=== PATIENT | female | born 1985 | race Caucasian/White ===

== ENCOUNTER → 2018-01-01 13:21 | Outpatient (CLI) | payer SELFPAY ==
[2017-12-08 09:56] VITALS: BP 126/71; BMI 26.4
--- NOTE | 2018-01-01 13:40 | US_ITS ---
STUDY: SECOND AND THIRD TRIMESTER OBSTETRICAL ULTRASOUND REASON FOR EXAM: Female, 32 years old. Anatomy. LMP: August 10, 2017. TECHNIQUE: Transabdominal PRIOR ULTRASOUND: None. FINDINGS: There is a single intrauterine fetus. The fetus is in a breech presentation. There is demonstrated cardiac activity with a heart rate of 143 bpm. There is a normal amniotic fluid volume. The largest amniotic fluid pocket measures 6.1 cm. The placenta is anterior in location and is not low lying. There are Grade 0 placental changes. The cervix measures 3.7 cm in length. The adnexal regions are not visualized. BIOMETRY: BPD: 4.8 cm: 20 weeks, 4 days HC: 18.9 cm: 21 weeks, 2 days AC: 15.58 cm: weeks, 6 days FL: 3.52 cm: 21 weeks, 1 days CI: 72 FL/BPD: 73 FL/HC: FL/AC: 23 HC/AC: 121 age by current US: 21 weeks, 0 days. NIDIA by current US: May 14, 2018. Estimated weight: 387 grams, +/- 57 grams, 65 %. Age by LMP: 20 weeks, 4 days. NIDIA by LMP: May 17, 2018. ANATOMY: Gender: Female Cranium: Normal lateral ventricles. Normal choroid plexus. Normal cerebellum. Normal cisterna magna. Normal face, nose and lips. Chest: Normal 4-chamber heart. Abdomen/Pelvis: Normal diaphragm. Normal stomach. Normal abdominal wall. Normal cord insertion. Normal 3 vessel cord. Normal kidneys. Normal bladder. Spine: Normal cervical spine. Normal thoracic spine. Normal lumbar spine. Normal sacrum. Extremities: Normal bilateral upper extremities. Normal bilateral lower extremities. US/OB Anatomy Scan IMPRESSION: 1. I single intrauterine at 21 weeks, 0 days. NIDIA is May 14, 2018. 2. EFW 38 7 g. 3. Adequate amniotic fluid. 4. Anterior grade 0 placenta. 5. Breech presentation. 6. No evidence of anatomic abnormality. Electronically Signed: Fredi Wilder DO at 16:05 EST Tel [phone], Service support ,
== END ==
PROVIDERS: Family Provider Family Medicine; PCP Family Medicine; Visit Provider Nurse Practitioner Women's Health
DX: Z34.90 Encounter for supervision of normal pregnancy, unspecified, unspecified trimester (principal)
CPT/HCPCS: 76805

== ENCOUNTER → 2018-02-23 12:17 | Outpatient (CLI) | payer SELFPAY ==
[2018-02-23 13:47] LABS: Absolute Lymphocyte Count 2.16 X10^3/ul (0.83-4.51); Absolute Neutrophil Count 11.7 X10^3/uL (2.0-7.7); Basophil# 0.03 X10^3/uL; Basophil% 0.2 % (0-1); Eosinophil# 0.19 X10^3/uL; Eosinophils% 1.3 % (0-5); Hematocrit 34.5 % (37-47); Hemoglobin 11.5 g/dl (12.0-15.0); Lymphocyte # 2.16 X10^3/ul (4.0); Lymphocyte % 14.2 % (19-41); Mean Corp Hgb Conc 33.3 g/gl (32-36); Mean Platelet Vol. 12.1 fl (6.2-12.0); Monocyte# 0.84 X10^3/uL; Monocyte% 5.5 % (0-10); Neutrophil # 11.74 X10^3/uL (2.7-7.7); Neutrophil % 77.5 % (47-70); Platelet Count 230 K/mm3 (150-450); RBC Distribution Width CV 12.9 % (11.6-14.6); Red Blood Count 3.71 M/mm3 (4.2-5.4); White Blood Count 15.2 K/mm3 (4.4-11.0)
[2018-02-23 13:54] LABS: POSITIVE COUNT NO; POSITIVE DIFFERENTIAL NO; POSITIVE MORPHOLOGY NO
[2018-02-23 14:03] LABS: Glucose Challenge Gest 1H 50g 139 mg/dL (70-140)
== END ==
PROVIDERS: Family Provider Family Medicine; PCP Family Medicine; Visit Provider Obstetrics & Gynecology
DX: Z34.81 Encounter for supervision of other normal pregnancy, first trimester (principal)
CPT/HCPCS: 36415; 82950; 85025; 86850; 86900

== ENCOUNTER → 2018-04-20 15:15 | Outpatient (CLI) | payer SELFPAY ==
[2018-04-20 16:22] LABS: Group B Strep DNA By PCR Negative (Negative); Internal Control PASS; Probe Check PASS; Specimen Processing Control PASS
== END ==
PROVIDERS: Family Provider Family Medicine; Visit Provider Nurse Practitioner Women's Health
DX: Z34.93 Encounter for supervision of normal pregnancy, unspecified, third trimester (principal); Z3A.36 36 weeks gestation of pregnancy
CPT/HCPCS: 87081; 87653

== ENCOUNTER 2018-05-18 04:08 | Inpatient (IN) | payer SELFPAY ==
[2018-05-18 04:40] VITALS: BMI 32.8
[2018-05-18] MEDS: Lactated Ringers 1,000 ML 50 ML IV (04:40)
--- NOTE | 2018-05-18 04:43 | PCM.HP.OB ---
- Problem List (1) Active labor at term Status: Acute (2) Abnormal glucose tolerance test in Status: Acute Comment: Fasting and 2 hr pp glucose all normal when checked X 4 weeks (3) Rh negative state in antepartum period Status: Acute Comment: rhogam PRN and at 28 weeks (4) Supervision of normal Status: Acute Qualifiers: Comment: PRR NIDIA 05/17/18 gender surprise PC Thuy, [place] Hao History Date of Admission: 05/18/18 Final NIDIA: 05/17/18 Gestational age: 40 Weeks and 1 Days History of this : This is a 33 year-old, G [], P [], at 40 weeks gestational age. Medical History: Medical History (Last Reviewed 05/11/18 @ 13:03 by Kelsi Flores) Rh negative state in antepartum period (Acute) O09.899 rhogam PRN and at 28 weeks History of abnormal cervical Pap smear Z87.898 Allergies No Known Allergies Allergy (Verified 05/18/18 04:39) Smoking Status: Never smoker Alcohol: None Number of Fetus(es): 1 Heart Tracin moderate variability nonreactive category I tracing TOCO Analysis: q2-3 History Past Pregnancies: Past Pregnancies Pregancy History 3 Elective abortions Hx Para 2 Spontaneous abortions Hx # Term Pregnancies Ectopic pregnancies Hx # Pregnancies Multiple births # of living children Past Pregnancies Del. Date Name GA/Weeks Outcome Route Bth Weight Gen Labor Lgth Anesthesia Del Locatn Provider FOB Unknown [place] 40 live - full term 8 lbs 6 oz Male 10 hours epidural [facility] Kayla Atkinson Unknown [place] 2013 39 live - full term forceps 9 lbs 5 oz Female 3 hours none [facility] Labs: Course Did the patient receive Yes care? Labs Blood Type: O RH: NEGATIVE RPR/VDRL/Syphilis Nonreactive Rubella status Immune HbSAg Negative Date Done: 10/30/17 Chlamydia Negative Gonorrhea Negative HIV/AIDS Non-Reactive Group B Strep: Negative Social History Marital Status: Alleged father Hao Hx Smoking No Smoking Status Never smoker Expected Infant Delivery Method: Spontaneous Vaginal Describe any other labor & delivery plans:: OB Visit. NIDIA Calculator. Estimated Delivery Date 05/17/18. Based on LMP (certain) 08/10/17. Current WG 39w 1d. Number 1. Expected Delivery Route/Plan. Vaginal; short labor/3 hr last time. Specific Issue/Plans. MIni chart given. Declines flu/tdap vaccine. rhogam: given 02/23/18. LARC form signed: declines. labor support person: Hao/spouse. pain management: natural. cut cord/dad catch: no. : yes. PP control planned: vasectomy. special requests: [] Review of Systems Constitutional: Denies: Fever, Malaise Eyes: Denies: Blurred vision, Vision Change HEENT: Denies: Head Aches, Visual Changes Cardiovascular: Denies: Chest Pain, Palpitations Respiratory: Denies: Cough, Shortness of Breath, Wheezing Gastrointestinal: Denies: Abdominal Pain, Diarrhea, Nausea, Vomiting Genitourinary: Denies: Dysuria, Hematuria Musculoskeletal: Denies: Joint Pain, Muscle pain Skin: Denies: Lesions, Rash Neurological: Denies: Blurred vision, Focal weakness, Headaches Psychiatric: Denies: Anxiety, Depression Endocrine: Denies: Heat/ Cold Intolerance Hematologic/ Lymphatic: Denies: Easy Bruising, Easy Bleeding Physical Exam General: Alert, Cooperative, No apparent distress HEENT: Atraumatic, Normocephalic. Negative for: Thyromegaly, Lymphadenopathy Cardiovascular: Regular rate Lungs: Normal air movement Abdomen: Soft, Non Tender, Gravid Neurological: Deep Tendon Reflexes 2+/4 and Symmetrical, Neuro grossly intact. Negative for: Clonus INSTITUTIONAL ASSET MANAGER: Normal external genitalia. Negative for: Vulvar lesions Estimated gestational size: Appropriate for gestational size Presentation: Cephalic Cervix Dilation (cm): 5 Station: 0 Effacement (%): 70 Assessment/Plan All Active Problems (Last Reviewed 05/11/18 @ 13:03 by Kelsi Flores) Active labor at term (Acute) Umbilical hernia (Acute) Abnormal glucose tolerance test in (Acute) Rh negative state in antepartum period (Acute) Supervision of normal (Acute) This is a 33 year-old, , at 40 weeks gestational age presents IAL exp management
--- NOTE | 2018-05-18 04:47 | HP.PCM_ITS ---
- Problem List (1) Active labor at term Status: Acute (2) Abnormal glucose tolerance test in Status: Acute Comment: Fasting and 2 hr pp glucose all normal when checked X 4 weeks (3) Rh negative state in antepartum period Status: Acute Comment: rhogam PRN and at 28 weeks (4) Supervision of normal Status: Acute Qualifiers: Comment: PRR NIDIA 05/17/18 gender surprise PC Thuy, [place] Hao History Date of Admission: 05/18/18 Final NIDIA: 05/17/18 Gestational age: 40 Weeks and 1 Days History of this : This is a 33 year-old, G [], P [], at 40 weeks gestational age. Medical History: Medical History (Last Reviewed 05/11/18 @ 13:03 by Kelsi Flores) Rh negative state in antepartum period (Acute) O09.899 rhogam PRN and at 28 weeks History of abnormal cervical Pap smear Z87.898 Allergies No Known Allergies Allergy (Verified 05/18/18 04:39) Smoking Status: Never smoker Alcohol: None Number of Fetus(es): 1 Heart Tracin moderate variability nonreactive category I tracing TOCO Analysis: q2-3 History Past Pregnancies: Past Pregnancies Pregancy History 2 3 Elective abortions Hx Para 2 Spontaneous abortions Hx # Term Pregnancies Ectopic pregnancies Hx # Pregnancies Multiple births # of living children Past Pregnancies Del. Date Name GA/Weeks Outcome Route Bth Weight Infant Gen Labor Lgth Anesthesia Del Locat Provider FOB Unknown [place] 40 live - full term 8 lbs 6 oz Male 10 hours epidural [facility] Kayla Atkinson Unknown [place] 2013 39 live - full term forceps 9 lbs 5 oz Female 3 hours none [facility] Labs: Course Did the patient receive Yes care? Labs Blood Type: O RH: NEGATIVE RPR/VDRL/Syphilis Nonreactive Rubella status Immune HbSAg Negative Date Done: 10/30/17 Chlamydia Negative Gonorrhea Negative HIV/AIDS Non-Reactive Group B Strep: Negative Social History Marital Status: Alleged father Hao Hx Smoking No Smoking Status Never smoker Expected Infant Delivery Method: Spontaneous Vaginal Describe any other labor & delivery plans:: OB Visit. NIDIA Calculator. Estimated Delivery Date 05/17/18. Based on LMP (certain) 09/18/17. Current WG 39w 1d. Number 1. Expected Delivery Route/Plan. Vaginal; short labor/3 hr last time. Specific Issue/Plans. MIni chart given. Declines flu/tdap vaccine. rhogam: given 02/23/18. LARC form signed: declines. labor support person: Hao/ spouse. pain management: natural. cut cord/dad catch: no. : yes. PP control planned: vasectomy. special requests: [] Review of Systems Constitutional: Denies: Fever, Malaise Eyes: Denies: Blurred vision, Vision Change HEENT: Denies: Head Aches, Visual Changes Cardiovascular: Denies: Chest Pain, Palpitations Respiratory: Denies: Cough, Shortness of Breath, Wheezing Gastrointestinal: Denies: Abdominal Pain, Diarrhea, Nausea, Vomiting Genitourinary: Denies: Dysuria, Hematuria Musculoskeletal: Denies: Joint Pain, Muscle pain Skin: Denies: Lesions, Rash Neurological: Denies: Blurred vision, Focal weakness, Headaches Psychiatric: Denies: Anxiety, Depression Endocrine: Denies: Heat/ Cold Intolerance Hematologic/ Lymphatic: Denies: Easy Bruising, Easy Bleeding Physical Exam General: Alert, Cooperative, No apparent distress HEENT: Atraumatic, Normocephalic. Negative for: Thyromegaly, Lymphadenopathy Cardiovascular: Regular rate Lungs: Normal air movement Abdomen: Soft, Non Tender, Gravid Neurological: Deep Tendon Reflexes 2+/4 and Symmetrical, Neuro grossly intact. Negative for: Clonus OUTSIDE PLANT CABLE ENGINEER: Normal external genitalia. Negative for: Vulvar lesions Estimated gestational size: Appropriate for gestational size Presentation: Cephalic Cervix Dilation (cm): 5 Station: 0 Effacement (%): 70 Assessment/Plan All Active Problems (Last Reviewed 05/11/18 @ 13:03 by Kelsi Flores) Active labor at term (Acute) Umbilical hernia (Acute) Abnormal glucose tolerance test in (Acute) Rh negative state in antepartum period (Acute) Supervision of normal (Acute) This is a 33 year-old, , at 40 weeks gestational age presents IAL exp management
[2018-05-18 05:01] LABS: Hematocrit 34.7 % (37-47); Hemoglobin 11.7 g/dl (12.0-15.0); Mean Corp Hgb Conc 33.7 g/gl (32-36); Mean Corpuscular Hgb 29.8 pg (27.0-32.0); Mean Corpuscular Volume 88.5 fL (81-99); Mean Platelet Vol. 12.7 fl (6.2-12.0); Platelet Count 224 K/mm3 (150-450); RBC Distribution Width CV 13.1 % (11.6-14.6); RBC Distribution Width SD 40.9 fl (35.1-43.9); Red Blood Count 3.92 M/mm3 (4.2-5.4); White Blood Count 12.2 K/mm3 (4.4-11.0)
[2018-05-18 05:05] LABS: Scan Indicated on CBC? Y/N NO
[2018-05-18] MEDS: Oxytocin 30 units/NS 500 ml 30 UNITS/500 ML IV.SOLN 334 UNITS IV (06:08)
[2018-05-18] MEDS: Oxytocin 30 units/NS 500 ml 30 UNITS/500 ML IV.SOLN 167 UNITS IV (06:38)
--- NOTE | 2018-05-18 06:52 | PCM.OB.VAG ---
- Problem List (1) Active labor at term Status: Acute (2) Abnormal glucose tolerance test in Status: Acute Comment: Fasting and 2 hr pp glucose all normal when checked X 4 weeks (3) Rh negative state in antepartum period Status: Acute Comment: rhogam PRN and at 28 weeks (4) Supervision of normal Status: Acute Qualifiers: Comment: PRR NIDIA 05/17/18 gender surprise PC Thuy, [place] Hao Vaginal Delivery Maternal Presentation: Active Labor Amniotic Membrane Rupture Type: Artificial Amniotic Fluid Description: Moderate meconium Final NIDIA: 05/17/18 Gestational age: 40 Weeks and 1 Days Date of Procedure: 05/18/18 Pre-Operative Diagnosis: ial Post-Operative Diagnosis: same Surgery/ Procedure Performed: Spontaneous Vaginal Delivery Type of Anesthesia: None, Local with 1% lidocaine Description of Procedure: Patient began pushing and delivered the head in the PARVEEN presentation. The head was delivered atraumatically followed by The anterior and posterior shoulders delivered without complication followed by the rest of the and the was placed on the maternal abdomen. Cord was clamped and cut and gentle traction was applied to the cord and the placenta delivered spontaneously immediately following it was noted to be intact with three-vessel cord. The perineum and vagina were inspected and noted to have a second degree laceration which was repaired in the usual fashion. EBL was 100 cc. Patient and tolerated delivery well. Presentation: PARVEEN Placental Delivery Description: Spontaneous Placenta Disposition: [facility] Cord Vessel Description: 3 Vessels Cord Entanglement: None Estimated Blood Loss: 100 Infant A gender: Female Episiotomy Description: None Laceration: Perineal Extension/lac, 2nd degree Medications given after delivery: IV Pitocin Complications: None
[2018-05-18] MEDS: Naproxen 250 MG Tablet PO ×2 (07:38→17:11)
[2018-05-18 08:10] VITALS: BP 140/63; PULSE 57; RESP 18; TEMP 36.4
[2018-05-18] MEDS: Acetaminophen 500 MG Tablet 1000 MG PO (13:58)
[2018-05-18 14:00] VITALS: BP 111/64; PULSE 60; RESP 20; TEMP 36.9; O2SAT 97
[2018-05-18 17:20] VITALS: BP 120/69; PULSE 69; RESP 20; TEMP 37.1; O2SAT 98
[2018-05-18 20:15] VITALS: BP 135/74; PULSE 62; RESP 16; TEMP 36.8
[2018-05-19 00:40] VITALS: BP 118/58; PULSE 57; RESP 16; TEMP 36.9
[2018-05-19 05:02] VITALS: BP 107/62; PULSE 57; RESP 16; TEMP 36.9
[2018-05-19 09:04] VITALS: BP 110/65; PULSE 76; RESP 18; TEMP 37.5; O2SAT 97
--- NOTE | 2018-05-19 10:04 | PCM.PN.OB ---
Patient Problems: Active and Suspected Problems (Last Reviewed 05/11/18 @ 13:03 by Kelsi Flores) Active labor at term (Acute) Subjective: No CP, SOB. Normal vaginal bleeding. - Physical Exam General: Alert, Oriented x3 Abdomen: Soft, Non Tender, - - FF below U Vital Signs Temp Pulse Resp BP Pulse Ox 99.5 F H 76 18 110/65 97 05/19/18 09:04 05/19/18 09:04 05/19/18 09:04 05/19/18 09:04 05/19/18 09:04 Oxygen Delivery Method Room Air Weight: 209 lb 14.081 oz Body Mass Index (BMI) 32.8 Intake and Output for Last 24 Hours 05/17/18 05/18/18 05/19/18 23:59 23:59 23:59 Intake Total 450 / 450 Output Total 200 / 200 Balance 250 / 250 Laboratory Tests Past 24 Hrs 05/18/18 09:45 Screen NEGATIVE Baby's Blood Type A POSITIVE Baby's ALEXYS NEGATIVE Medical Necessity - Tobacco Use Smoking Status: Never smoker Assessment/Plan All Active Problems (Last Reviewed 05/11/18 @ 13:03 by Kelsi Flores) Active labor at term (Acute) Umbilical hernia (Acute) Abnormal glucose tolerance test in (Acute) Rh negative state in antepartum period (Acute) Supervision of normal (Acute) PPD #1: doing well. routine care. . Rh negative-needs rhogam plans home today.
--- NOTE | 2018-05-19 10:06 | PCM.DCVAG ---
Additional Instructions: If you experience any of the following, contact your healthcare provider. Bleeding that soaks a pad every hour for 2 hours Fever 100.4 or higher Unrelieved incision or abdominal pain Swelling, redness, discharge or bleeding from your incision or episiotomy site Your incision begins to separate Problems urinating (including inability to urinate or burning while urinating). Visual changes Severe headache Flu-like symptoms Pain or redness in one of both of your breasts Pain, warmth, tenderness or swelling in your legs, especially the calf area Frequent nausea and vomiting Symptoms of depression or anxiety If you experience any of the following, call 911 or go to the nearest Emergency Room. Chest pain Problems breathing Seizure activity Partial or complete paralysis of a body part, slurred speech, weakness or drooping of the face, or a sudden inability to walk or hold your balance Allergies/Adverse Reactions: Allergies No Known Allergies Allergy (Verified 05/18/18 04:39) Primary Care Physician: Ramses Cabrera MD [Primary Care Provider] -
--- NOTE | 2018-05-19 10:07 | DCINST_ITS ---
Additional Instructions: If you experience any of the following, contact your healthcare provider. * Bleeding that soaks a pad every hour for 2 hours * Fever 100.4 or higher * Unrelieved incision or abdominal pain * Swelling, redness, discharge or bleeding from your incision or episiotomy site * Your incision begins to separate * Problems urinating (including inability to urinate or burning while urinating) . * Visual changes * Severe headache * Flu-like symptoms * Pain or redness in one of both of your breasts * Pain, warmth, tenderness or swelling in your legs, especially the calf area * Frequent nausea and vomiting * Symptoms of depression or anxiety If you experience any of the following, call 911 or go to the nearest Emergency Room. * Chest pain * Problems breathing * Seizure activity * Partial or complete paralysis of a body part, slurred speech, weakness or drooping of the face, or a sudden inability to walk or hold your balance Allergies/Adverse Reactions: Allergies No Known Allergies Allergy (Verified 05/18/18 04:39) Primary Care Physician: Ramses Cabrera MD [Primary Care Provider] -
== END 2018-05-19 14:10 | disposition home or self-care (01) | DRG 775 ==
PROVIDERS: Admitting Provider Obstetrics & Gynecology; Family Provider Family Medicine; PCP Family Medicine; Visit Provider Obstetrics & Gynecology
DX: O99.62 Diseases of the digestive system complicating childbirth (principal); K42.9 Umbilical hernia without obstruction or gangrene; O26.899 Other specified pregnancy related conditions, unspecified trimester; Z67.91 Unspecified blood type, Rh negative; O99.814 Abnormal glucose complicating childbirth; O70.1 Second degree perineal laceration during delivery; Z3A.40 40 weeks gestation of pregnancy; Z37.0 Single live birth
CPT/HCPCS: 59025; 59050; 85027; 85461; 86850; 86900; 90384; 99218; J7120; G0378; J2790

== ENCOUNTER → 2018-07-01 18:29 | Outpatient (CLI) | payer SELFPAY ==
[2018-07-07 12:10] LABS: HPV APTIMA, High Risk Negative (Negative)
== END ==
PROVIDERS: Family Provider Family Medicine; PCP Family Medicine; Visit Provider Obstetrics & Gynecology
DX: Z12.4 Encounter for screening for malignant neoplasm of cervix (principal)
CPT/HCPCS: 88175; G0145

== ENCOUNTER 2022-11-06 19:05 | Emergency (ER) | payer OTHER, SELFPAY ==
[2022-11-06 19:06] VITALS: BP 123/104; PULSE 137; RESP 16; TEMP 36.4; O2SAT 98; BMI 31.1
[2022-11-06] MEDS: 0.9% Normal Saline 1,000 ML 999 ML IV (20:47)
[2022-11-06 20:55] LABS: Absolute Lymphocyte Count 2.32 X10^3/uL (0.83-4.51); Absolute Neutrophil Count 6.8 X10^3/uL (2.0-7.7); Basophil# 0.05 X10^3/uL; Basophil% 0.5 % (0-1); Eosinophil# 0.02 X10^3/uL; Eosinophils% 0.2 % (0-5); Hemoglobin 14.4 g/dL (12.0-15.0); Lymphocyte # 2.32 X10^3/ul (0.83-4.51); Lymphocyte % 22.7 % (19-41); Mean Corp Hgb Conc 33.5 g/dL (32-36); Mean Corpuscular Hgb 29.4 pg (27.0-32.0); Mean Corpuscular Volume 87.8 fL (81-99); Mean Platelet Vol. 12.2 fl (6.2-12.0); Monocyte# 1.01 X10^3/uL; Monocyte% 9.9 % (0-10); NRBC Flagged by Analyzer 0 % (0-5); Neutrophil # 6.81 X10^3/uL (2.7-7.7); Neutrophil % 66.4 % (47-70); Platelet Count 363 K/mm3 (150-450); RBC Distribution Width SD 38.5 fl (35.1-43.9); White Blood Count 10.2 K/mm3 (4.4-11.0)
[2022-11-06 21:12] LABS: Internal QC Validated? YES +Cl - CLEAR BKGD; Pregnancy, Serum, hCG Quali. NEGATIVE Negative
[2022-11-06 21:18] LABS: Anion Gap 15 (5-15); BUN 17 mg/dL (7-18); Calcium,Total 9.6 mg/dL (8.5-10.1); Chloride 104 mmol/L (98-107); Creatinine, Serum 1.06 mg/dL (0.55-1.02); EST Glomerular Filtration Rate 62 mL/min (>60); Est Glom Filt Rate - Afr Amer 75 mL/min (>60); Estimated Creatinine Clearance 68.69 ml/min; Glucose 125 mg/dL (74-106); Potassium 3.4 mmol/L (3.5-5.1); Sodium Level 137 mmol/L (136-145); Thyroid Stim Hormone (TSH) 2.04 uIU/mL (0.358-3.74)
--- NOTE | 2022-11-06 22:26 | EDS_ITS ---
HPI HPI - Psych History of Present Illness Chief Complaint: Anxiety Informant: patient Narrative Narrative: Patient is a 37-year-old female presenting with panic attack. Patient is going through some marital strife and started having panic attack. Patient notes that she has had increased anxiety lately and as well as increased fatigue. She has been eating less with less appetite and less energy level. She has no thoughts wanting to harm her self. She states she could not get the panic attack to stop so 911 was called. Patient then developed spasms and numbness of her hands, feet and jaw. No other complaints at this time. Last menstrual period was 3 weeks ago. Does not think she is but states it could be a possibility. [facility] Medical History History of abnormal cervical Pap smear Rh negative state in antepartum period Home Medications hydroxyzine pamoate 25 mg capsule 50 mg PO TID PRN PRN Anxiety #30 caps 11/06/22 [Rx Last Taken Unknown] Allergy/AdvReac Type Severity Reaction Status Date / Time No Known Allergies Allergy Verified 04/04/19 15:14 Family History Father CAD (coronary artery disease) Mother Thyroid disorder Grandfather Cancer Grandfather Cancer prostate cancer Social History Smoking Status: Never smoker alcohol intake: never substance use type: does not use what type of physical activity do you participate in: none seatbelt use: always do you feel safe at home: Yes additional social history: Spouse Hao 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 ROS ROS ED Constitutional Constitutional ED: Denies chills or fever(s) Eyes Eyes: Denies change in vision ENT ENT ED: Denies rhinorrhea or sore throat Cardiovascular Cardiovascular: Reports racing heartbeat; Denies chest pain Respiratory/Chest Respiratory/Chest: Reports dyspnea; Denies cough Gastrointestinal Gastrointestinal: Denies abdominal pain, nausea or vomiting Musculoskeletal Musculoskeletal: Reports other Details: hand and feet pain ; Denies arthralgias or myalgias Integumentary Denies rash Neurologic Neurologic: Reports paresthesias; Denies headache(s) Psychiatric Psychiatric: Reports anxiety and depression; Denies suicidal ideation or neves icidal thoughts Hematologic/Lymphatic Hematologic/Lymphatic: Denies easy bleeding or easy bruising EXAM Physical Exam Const Vital Signs: 11/06/22 19:06 11/06/22 22:44 Temperature 97.6 F L Temperature Source Temporal Pulse Rate 137 H Respiratory Rate 16 Blood Pressure 123/104 H 127/75 H Blood Pressure Mean 110 Pulse Ox 98 Oxygen Delivery Method Room Air Positive well nourished and well developed Constitutional Narrative: On arrival patient was hyperventilating and having carpopedal spasms. General Appearance ED: well developed HEENT Reports moist mucous membranes normocephalic and atraumatic Eyes PERRL and EOMs intact bilaterally Neck supple and no JVD Resp clear to auscultation bilaterally Resp Narrative: Tachypneic Auscultation: Negative for rhonchi or wheezes Cardio no murmurs Rate: tachycardic Rhythm: regular rhythm GI non-tender and non-distended Extremity normal to inspection General Extremety ED: Negative for edema or tenderness General Extremity: Negative for edema Neuro oriented x3 and no sensory deficits noted Motor Exam: muscle tone normal throughout; Negative for movement abnormality no sal Psych Appearance: grossly normal Activity / Motor Behavior: appropriate eye contact Speech: slow Mood & Affect: depressed and anxious Thought Process: normal thought process Thought Content: normal thought content Attention / Concentration: attention grossly intact Memory / Cognition: memory grossly intact Insight: insight good Judgement: judgement good Skin Lesions: no lesions Rashes: no rashes MDM MDM MDM Narrative Medical decision making narrative: Patient evaluated after panic attack. While patient did not admit to me, EMS reported that patient found out that her had been cheating on her. She been having some marital issues for the past few days. The patient is placed on a nonrebreather not hold of the oxygen and eventually her breathing does calm down. She states she has had decreased activity and appetite lately and I question if she could have some depression. We will check some basic labs however. CBC and BMP as well as TSH largely normal. Bicarb is 18 and creatinine is 1.06 consistent with some mild dehydration. Patient is given IV fluids in the ER. Serum is negative. Patient is counseled on the importance of follow-up with a counselor given everything she is going to currently. She is counseled importance of having some to talk to. Patient states she would never do anything to harm her self that she has children and family that she loves and cares for. She lives close to her parents and her brother's and feels that she does have a lot of support. Is given a prescription for a short course of hydroxyzine to help with further anxiety attacks. Again is encouraged to follow-up with primary care doctor. Discharged home in stable and improved condition. Patient is eating and drinking prior to discharge. Lab Data Labs: Laboratory Results - last 24 hr 11/06/22 11/06/22 11/06/22 19:10 19:10 19:10 WBC 10.2 RBC 4.90 Hgb 14.4 Hct 43.0 MCV 87.8 MCH 29.4 MCHC 33.5 RDW Std Deviation 38.5 RDW Coeff of Kaitlyn 12.0 Plt Count 363 MPV 12.2 H Immature Gran % (Auto) 0.300 Neut % (Auto) 66.4 Lymph % (Auto) 22.7 [place] % (Auto) 9.9 Eos % (Auto) 0.2 Baso % (Auto) 0.5 Absolute Neuts (auto) 6.8 Absolute Lymphs (auto) 2.32 Nucleated RBC % 0 Sodium 137 Potassium 3.4 L Chloride 104 Carbon Dioxide 18.0 L Anion Gap 15 BUN 17 Creatinine 1.06 H Estim Creat Clear Calc 68.69 Est GFR (MDRD) Af Amer 75 Est GFR (MDRD) Non-Af 62 BUN/Creatinine Ratio 16.0 Glucose 125 H Calcium 9.6 TSH 2.04 Serum , Qual NEGATIVE Discharge Plan Triage Chief Complaint: Anxiety ED Provider: Triny Guillermo Dx/Rx/DC Orders Clinical Impression: Panic attack as reaction to stress, Acute dehydration Instructions: ED Panic Attack Prescriptions: New hydroxyzine pamoate 25 mg capsule 50 mg PO TID PRN PRN (Reason: Anxiety) Qty: 30 0RF Primary Care Provider: Care Physician,No Primary Referrals: Counseling,Center [Group of Physicians] - As Needed Care Physician,No Primary [Primary Care Provider] - Disposition Disposition: Home, Self Care Discharge Date/Time: 11/06/22 22:45
[2022-11-06 22:44] VITALS: BP 127/75
== END 2022-11-06 22:45 | disposition home or self-care (01) ==
PROVIDERS: Emergency Provider Emergency Medicine; Visit Provider Emergency Medicine
DX: F43.9 Reaction to severe stress, unspecified (principal); E86.0 Dehydration
CPT/HCPCS: 80048; 84443; 84703; 85025; 96360; 99285; J7030; A4216

== ENCOUNTER → 2022-12-01 | Outpatient (CLI) | payer SELFPAY ==
[2022-12-01 18:10] LABS: HIV - WCH Non-Reactive (Nonreactive); Hepatitis C Antibody Non-Reactive (Nonreactive); Syphilis Antibodies Non-reactive
[2022-12-04 02:07] LABS: Chlamydia By Nucleic Acid AMP Negative (Negative)
[2022-12-04 21:47] LABS: HSV 2 IgG < 0.91 index (0.00-0.90)
[2022-12-04 21:57] LABS: Gonococcus By Nucleic Acid AMP Negative (Negative)
== END | disposition home or self-care (01) ==
PROVIDERS: Referring Provider Nurse Practitioner Women's Health; Visit Provider Nurse Practitioner Women's Health
DX: Z11.3 Encounter for screening for infections with a predominantly sexual mode of transmission (principal); Z20.2 Contact with and (suspected) exposure to infections with a predominantly sexual mode of transmission
CPT/HCPCS: 36415; 86695; 86696; 86703; 86780; 86803; 87491; 87591

== ENCOUNTER 2025-03-01 06:23 | Day surgery (SDC) | payer SELFPAY ==
[2025-03-01] VITALS (9 sets, daily range): BP systolic 101–119; BP diastolic 63–76; PULSE 64–82; RESP 16–17; TEMP 36.7–37; O2SAT 96–100; BMI 28.0
[2025-03-01] MEDS: Doxycycline 100 MG CAPSULE PO (07:12)
[2025-03-01 07:14] LABS: Hematocrit 38.2 % (37-47); Mean Corpuscular Hgb 30.4 pg (27.0-32.0); Mean Corpuscular Volume 89.3 fL (81-99); Mean Platelet Vol. 11.1 fl (6.2-12.0); Platelet Count 238 K/mm3 (150-450); RBC Distribution Width CV 12.5 % (11.6-14.6); RBC Distribution Width SD 40.7 fl (35.1-43.9); Red Blood Count 4.28 M/mm3 (4.2-5.4)
--- NOTE | 2025-03-01 07:30 | HP.PCM_ITS ---
History and Physical Intake Vital Signs 02/16/2310:38 02/28/2511:40 02/28/2511:46 Height 5 ft 6 in 5 ft 6 in 5 ft 6 in Weight: 177 lb 2 oz BMI 28.5 BP 113/73 Intake Visit Reasons: AMENNORHEA Chief Complaint: [place] Jury Consultant Required: No Is patient in pain?: No Allergies No Known Allergies Allergy (Verified 02/28/25 11:37) Medications ?Medication ?Instructions ?Recorded ?Confirmed ?Type NK 02/28/25 02/28/25 History Is last menstrual period known: Yes Last Menstrual Period: 12/24/24 Post menopausal: No Patient : Yes : No PFSH Family History Father CAD (coronary artery disease)Mother Thyroid disorderGrandfather CancerGrandfather Cancer prostate cancer Social History adopted: No household members: children housing: house number of children: 3 Smoking Status: Never smoker alcohol intake: never substance use type: does not use what type of physical activity do you participate in: none seatbelt use: always do you feel safe at home: Yes additional social history: HPI AMENNORHEA Details: JOSIAH CHRISTOPHER is a 39 year old who presents for positive UPT 02/03. No vaginal bleeding. No nausea. no fevers. By LMP should be 9w 3d. on US no fht or color doppler flow seen, CRL measuring 8w4d. no abnormalities seen otherwise. confirmed loss. Female Reproductive History Last Menstrual Period: 12/24/24 History 4 Elective abortions Hx Para 3 Spontaneous abortions Hx # Term Pregnancies 3 Ectopic pregnancies Hx # Pregnancies Multiple births # of living children 3 Past Pregnancies Del. Date Name GA/Weeks Outcome Route Bth Weight Gen Labor Lgth Anesthesia Del Locatn Provider FOB 11/11/10 Mich 40 live - full term 8 lbs 6 oz Male 10 hours epidural [facility] Josiah Atkinson 01/14/13 Thuy 39 live - full term forceps 9 lbs 5 oz Fem rosalino 3 hours none [facility] 05/18/18 Lelia 40 live - full term 9lbs Female 4 hours none [facility] LUIS ANTONIO Hao ROS Const Constitutional: Reports system reviewed and no additional complaints, except as documented Eyes Eyes: Reports system reviewed and no additional complaints, except as documented Cardio Card: Denies chest pain Resp Resp: Denies cough or dyspnea GI GI: Denies abdominal pain or change in bowel habits : Reports as per HPI; Denies nipple discharge Skin Skin/Breast: Denies change in hair, breast mass, breast pain, breast skin changes or nipple discharge Exam Const General: cooperative and no acute distress Nutritional Appearance: average body habitus Orientation: oriented x3 HENMT Head: normal to inspection and normocephalic Neck Neck: normal visual inspection and trachea midline Thyroid: thyroid normal Resp Effort & Inspection: normal respiratory effort GI Inspection: normal to inspection and non-distended Palpation: soft and no hepatosplenomegaly General: bladder normal to palpation External Female Exam: normal external appearance and normal appearance of the urethra Urethra: normal appearance of the urethra Speculum Exam - Vagina: normal appearance of the vagina, normal vaginal discharge and nontender Speculum Exam - Cervix: normal appearance of the cervix and nontender Bimanual Exam- Vagina & Uterus: normal bimanual exam, uterine size normal, bladder normal to palpation, uterine shape normal, No tender, uterine mobility normal, consistency normal, normal palpation and non-tender Bimanual Exam- Adnexa, other: normal adnexae, adnexae mobile, no masses and normal Pelvic Support: normal Skin General: no rashes or lesions noted Coding Level of Care Code Off vis,est,level 4 Diagnoses Missed O02.1 Assessment and Plan Assessment and Plan (1) Missed : Status: Acute Comment: proceed with suction d and c Plan After discussing the patient's diagnosis and treatment plan options, patient wishes to proceed with surgical management. I have discussed with the patient the risks, benefits, and alternatives of the procedure which include but are not limited to risks of anesthesia, bleeding, infection, possible damage to bowel, bladder, or surrounding vasculature which could lead to additional surgery to evaluate any complications. Patient agrees to procedure and wishes to proceed. ACOG/uptodate references given for additional information regarding procedure. 02/28/25 6100 <Electronically signed by Shaista Parada MD> Date UPDATE- I have seen the patient and performed any clinically relevant updates to the history and physical exam. Shaista Parada MD
--- NOTE | 2025-03-01 07:49 | PCM.PRE.AN2 ---
ASA Classification* ASA Classification ASA Classification: 2 Assessment & Plan Anesthesia* Anesthesia Assessment Anesthesia Assessment: Discussed sedation and/or anesthesia options, risks, benefits, and alternatives with patient/parents/legal guardian/POA. Questions invited. The patient/parents/legal guardian/POA seems to understand and agrees to proceed with anesthesia plan. Reviewed the physical assessment, medical history, allergy history and patient home medications list prior to surgery/procedure/anesthetic and documented any changes. Performed airway and anesthesia risk assessments. Anesthesia Type Anesthesia Type: MAC Anesthesia Focused Assessment* Temperature: 98.6 F Pulse Rate: 64 Blood Pressure: 116/72 Respiratory Rate: 17 Pulse Ox: 96 Airway Assessment Mouth opens: >3 cm Mallampati Score: II Focused Labs Anesthesia Preop lab: CBC WBC 7.0 K/mm3 (4.4-11.0) 03/01/25 07:06 03/01/25 RBC 4.28 M/mm3 (4.2-5.4) 03/01/25 07:06 03/01/25 Hgb 13.0 g/dL (12.0-15.0) 03/01/25 07:06 03/01/25 Hct 38.2 % (37-47) 03/01/25 07:06 03/01/25 Plt Count 238 K/mm3 (150-450) 03/01/25 07:06 03/01/25 CHEMISTRY Potassium 3.4 mmol/L (3.5-5.1) L 11/06/22 19:10 11/06/22 Sodium 137 mmol/L (136-145) 11/06/22 19:10 11/06/22 BUN 17 mg/dL (7-18) 11/06/22 19:10 11/06/22 Creatinine 1.06 mg/dL (0.55-1.02) H 11/06/22 19:10 11/06/22 Glucose 125 mg/dL (74-106) H 11/06/22 19:10 11/06/22 TSH 2.04 uIU/mL (0.358-3.74) 11/06/22 19:10 11/06/22 COAG Pre-Assessment Diagnosis/Proposed Procedure Planned Operative Procedure(s): SUCTION D&C Anesthesia History Anesthesia History - printer slotter feeder: Anesthesia History - printer slotter feeder Hx Hospitalization No 02/28/25 13:34 Any Problems With Anesthesia No 02/28/25 13:34 Cholinesterase deficiency No 02/28/25 13:34 You/Your Family Experience No 02/28/25 13:34 fever (hyperthermia) with Relationship Recent Exposure to Contagious No 03/01/25 07:10 Disease Does patient have nerve No 02/28/25 13:34 stimulator Patient instructed to have device shut off --Does patient have Pacemaker No 03/01/25 07:10 or ICD? When Was Last Pacemaker Check QUESTION #4 FULL TEXT: You/Your Family Experience fever (hyperthermia) with Anesthesia Last Oral Intake Last Oral intake: Last Oral Intake NPO since 00:00 03/01/25 07:10 Meds taken in AM with sips of No 03/01/25 07:10 water? Meds patient instructed to take am of surgery PONV PONV - printer slotter feeder: PONV - printer slotter feeder Female Yes 02/28/25 13:34 HX of Motion Sickness Yes 02/28/25 13:34 HX of N/V After Surgery No 02/28/25 13:34 Non-Smoker Yes 02/28/25 13:34 Duration of Surgery greater No 02/28/25 13:34 than 60 minutes Number of Risk Factors 3 02/28/25 13:34 PONV Score Moderate Risk 02/28/25 13:34 Height & Weight Height & Weight: Anesthesia: Height & Weight Height 5 ft 6 in 03/01/25 07:10 Weight: 79 kg 03/01/25 07:10 Body Mass Index (BMI) 28.0 03/01/25 07:10 Respiratory Assessment Respiratory Assessment - printer slotter feeder: Respiratory Tract Infection Hx - printer slotter feeder Hx Respiratory Tract Infection No 02/28/25 13:34 STOP Sleep Apnea STOP Sleep Apnea - printer slotter feeder: STOP Sleep Apnea - printer slotter feeder Hx Hypertension No 02/28/25 13:34 Hx Sleep Apnea No 02/28/25 13:34 CPAP BIPAP Do you snore loudly (louder No 02/28/25 13:34 than talking or can be heard Do you often feel tired/ No 02/28/25 13:34 fatigued/ sleepy during daytime? Has anyone observed you stop No 02/28/25 13:34 breathing during sleep? STOP Results Negative 02/28/25 13:34 QUESTION #5 FULL TEXT : Do you snore loudly (louder than talking or can be heard through closed doors)? Tobacco Use History Tobacco Use History - printer slotter feeder: Tobacco Use History - printer slotter feeder Tobacco Use Smoking Status Never smoker 02/28/25 13:34 Hx Tobacco Use No 02/28/25 13:34 Years Smoking Packs Smoked per Day Smoking Cessation Date was within the last 15 years Hx Smoking Cessation Date Hx Smoking Cessation Counseling Hematologic Medial History Hematologic Hx - printer slotter feeder: Hematologic Medical Hx - network professional Hx of Blood Transfusion No 02/28/25 13:34 Hx of Transfusion in last 3 No 02/28/25 13:34 Months Date of Last Transfusion (if within last 3 months) Ever experience any problems No 02/28/25 13:34 with transfusion(s)? Specify any problems Hx of Preganancy in last 3 N/A 02/28/25 13:34 Months Nurse Filling Out Transfusion NBUCHER 02/28/25 13:34 & Questions: Date: 02/28/25 02/28/25 13:34 Time: 13:35 02/28/25 13:34 Patient unable to answer at this time (ie. confused, unrespo /Reproduction History /Reproductive History - printer slotter feeder: /Reproductive Hx- printer slotter feeder Hx Now Yes 02/28/25 13:34 Gestational Age (in weeks): EDC: Hx Hx Para Hx Section SAB No 02/28/25 13:34 Active Medications Active Medications: Current Medications Generic Name Dose Route Start Last Admin Trade Name Freq PRN Reason Stop Dose Admin Doxycycline Monohydrate 100 mg 03/01/25 08:00 03/01/25 07:12 Doxycycline 100 Mg Capsule PO 03/01/25 08:01 100 mg PREOP ONE Administration PFSH Medical History Non-smoker Home Medications ?Medication ?Instructions ?Recorded ?Last Taken ?Type NK 02/28/25 Unknown History Allergy/AdvReac Type Severity Reaction Status Date / Time No Known Allergies Allergy Verified 03/01/25 07:09 Family History Father CAD (coronary artery disease) Mother Thyroid disorder Grandfather Cancer Grandfather Cancer prostate cancer Social History adopted: No household members: children housing: house number of children: 3 Smoking Status: Never smoker alcohol intake: never substance use type: does not use what type of physical activity do you participate in: none seatbelt use: always do you feel safe at home: Yes additional social history: Review of Systems (Anesthesia) ROS Narrative System reviewed and no additional complaints, except as documented.
--- NOTE | 2025-03-01 08:00 | POC_PTH ---
PATIENT: JOSIAH CHRISTOPHER LOC: [facility] [place] U#:[id number] AGE/SX: 39/F ROOM: RE03/01/[address]: Dr. Shaista Parada MD : 1985 BED: DIS: 03/01/2025 SPEC #: [id number] RECD: 03/01/25 11:38 STATUS: AVILA REQ #: [id number] LUIS FERNANDO: 03/01/25 08:[address]: Shaista Parada DEPT: SURGICAL PATHOLOGY RECD BY: Gigi Arciniega ENTERED: 03/01/25 11:39 SP TYPE: PROD CONC OTHR DR: Dr. Jovani Marin MD Tissues: A - Product of conception, NOS Procedures: Surgery Specimen Level IV HEADER OPERATION: Dilation and curettage, suction PRE-OP DIAGNOSIS: Missed TISSUE SUBMITTED: A- Products of conception MICROSCOPIC DIAGNOSIS A. Uterine contents, products of conception, dilation and curettage: * Immature chorionic villi with red blood cells, tissue, hypersecretory endometrium and decidua, consistent with products of conception. MICROSCOPIC DESCRIPTION Slides are reviewed. GROSS DESCRIPTION A. Received in formalin in a container labeled with the patient's name, date of , and products of conception are multiple moreno-pink, pale fragments of soft tissue measuring 6.7 x 6.3 x 1.3 cm in aggregate. The contents are searched, and a 2.5 x 2.0 x 1.0 cm fragment of feathery possible chorionic villous tissue is identified. No grape-like clusters are discovered. No parts are found. Street Car Inspector sections are submitted in A1-2. [facility] 03-01-2025 CPT:85412
[2025-03-01] MEDS: Lidocaine 1% (20 ml mdv) 20 ML Vial (08:10)
--- NOTE | 2025-03-01 08:14 | OP.PCM_ITS ---
Problems Associated Problem List Diagnoses (1) Missed : Procedures Urinary/Genital 52xxx-59xxx: 34502 Surg Trtmt missed Ab, 1TM Operative Report (Standard) Operative Information Date of Procedure: 03/01/25 Pre-Operative Diagnosis: see problem list comments Post-Operative Diagnosis: same Surgery/Procedure Performed: suction dilation and curettage chief mechanical engineer: No Type of Anesthesia: IV Sedation and Local RN Documented Start/Stop Times: Operation Date: 03/01/25 08:00 Case Time Into Pre-Op 03/01/25 06:30 Anesthesia Start 03/01/25 07:51 Into Room 03/01/25 07:51 Out of Pre-Op 03/01/25 07:51 Procedure Start 03/01/25 08:07 Procedure End 03/01/25 08:13 Procedure Start Time: 08:07 Procedure Stop Time: 08:13 Select all DRAINS/GRAFTS/IMPLANTS that apply: None Estimated Blood Loss: 50 Specimen collected: Yes Description of specimen(s) removed: retained POC Description of surgery: Patient was taken to the operating room and placed under MAC local anesthesia. She was prepped and draped in the normal sterile fashion the dorsal lithotomy position. Bladder was drained of clear urine and anterior lip of the cervix was grasped and the uterus sounded to 10cm. Cervix was progressively dilated to allow passage of a 10mm suction curette. Progressive passes were made removing the retained products of conception without complication. Sharp curettage confirmed complete removal of the retained products. All instruments were removed from the vagina and excellent hemostasis was noted and the patient was taken to recovery in stable condition. Surgical Findings: 9 week missed ab Complications Complications: No
--- NOTE | 2025-03-01 08:16 | PCM.DC ---
Discharge Instructions Diet Discharge Diet: No restrictions DC O2, CPAP, BIPAP needs Home O2 Discharge instructions: No Dressing / Incision Discharge Activity: Return to Normal Activity, May Shower and May Take a Tub Bath (after 1 week) May resume sexual activity in: 1-2 weeks Weight Bearing Status: Weight bearing as tolerated Lifting Restrictions: none Dressing / Incision Call your doctor if you observe: Fever of 101 or Higher, Using more than 1 pad per hour, Shortness of breath and Uncontrolled pain Follow Up Care Please Follow Up With: Shaista Parada MD When: Call [phone] to schedule appointment. Test Results: Test results from this visit will be discussed in further detail at your follow-up appointment, if applicable. Discharge Plan Admission Attending Provider: Shaista Parada Primary Care Provider: Jovani Marin Instructions Print Language: [place]ican Discharge Orders/Prescriptions Prescriptions: No Action NK Referrals / Follow Up: Jovani Marin MD [Primary Care Provider] - Disposition Disposition (needs filled in before D/C Order can be placed): Home, Self Care
--- NOTE | 2025-03-01 08:23 | PCM.POST.ANE ---
Anesthesia: Postop Eval I Current Vital Signs Temperature: 98.1 F Pulse Rate: 80 Blood Pressure: 101/76 Respiratory Rate: 16 Pulse Ox: 98 Oxygen Delivery Method: Room Air Assessment Airway patent: Yes Spontaneous unlabored respirations: Yes Mental status: Calm nausea: No Vomiting: No Anesthesia Complication: No Fluid Hydration Crystalloid volume administer (ml): 10 Total IV fluid infused: 10 Progress Note Anesthesia document: Postop Eval 1 completed: Yes
--- NOTE | 2025-03-01 10:35 | POSTOPAN2_ITS ---
Anesthesia Postop Eval I Sum Postop Eval Completion status Anesthesia document: Postop Eval 1 completed: Yes Anesthesia Postop Eval I Summary Anesthesia Postop Eval I Summary: Anesthesia Postop Eval I: Assessment Summary Airway patent Yes 03/01/25 08:24 FORGING PRESS LEVER TENDER.PKEL Spontaneous unlabored Yes 03/01/25 08:24 FORGING PRESS LEVER TENDER.PKEL respirations Mental status Calm 03/01/25 08:24 FORGING PRESS LEVER TENDER.PKEL nausea No 03/01/25 08:24 FORGING PRESS LEVER TENDER.PKEL Vomiting No 03/01/25 08:24 FORGING PRESS LEVER TENDER.PKEL Anesthesia Postop Eval I: Fluid Summary Crystalloid volume administer 10 03/01/25 08:24 FORGING PRESS LEVER TENDER.PKEL (ml) Colloids volume administered ( ml) Blood Product volume administered (ml) Total IV fluid infused 10 03/01/25 08:24 FORGING PRESS LEVER TENDER.PKEL Anesthesia Postop Eval I: Summary Notes Anesthesia Complication No 03/01/25 08:24 FORGING PRESS LEVER TENDER.PKEL Anesthesia Complication Comment: Post-operative progress note Anesthesia: Postop Eval II Evaluation Mental status: Awake Pain Level: 3 nausea: No Vomiting: No
--- NOTE | 2025-03-01 10:35 | PCM.POSTANE2 ---
Anesthesia Postop Eval I Sum Postop Eval Completion status Anesthesia document: Postop Eval 1 completed: Yes Anesthesia Postop Eval I Summary Anesthesia Postop Eval I Summary: Anesthesia Postop Eval I: Assessment Summary Airway patent Yes 03/01/25 08:24 WRAPPING MACHINE OPERATOR.PKEL Spontaneous unlabored Yes 03/01/25 08:24 WRAPPING MACHINE OPERATOR.PKEL respirations Mental status Calm 03/01/25 08:24 WRAPPING MACHINE OPERATOR.PKEL nausea No 03/01/25 08:24 WRAPPING MACHINE OPERATOR.PKEL Vomiting No 03/01/25 08:24 WRAPPING MACHINE OPERATOR.PKEL Anesthesia Postop Eval I: Fluid Summary Crystalloid volume administer 10 03/01/25 08:24 WRAPPING MACHINE OPERATOR.PKEL (ml) Colloids volume administered ( ml) Blood Product volume administered (ml) Total IV fluid infused 10 03/01/25 08:24 WRAPPING MACHINE OPERATOR.PKEL Anesthesia Postop Eval I: Summary Notes Anesthesia Complication No 03/01/25 08:24 WRAPPING MACHINE OPERATOR.PKEL Anesthesia Complication Comment: Post-operative progress note Anesthesia: Postop Eval II Evaluation Mental status: Awake Pain Level: 3 nausea: No Vomiting: No
== END 2025-03-01 09:30 | disposition home or self-care (01) ==
LOC: SDC 06:26 → AC 06:28
PROVIDERS: PCP Family Medicine; Referring Provider Obstetrics & Gynecology; Visit Provider Obstetrics & Gynecology
PROC: (CPT 59820; principal; 2025-03-01 07:45)
DX: O02.1 Missed abortion (principal)
CPT/HCPCS: 59820; 01965; 85027; 86850; 86900; 86901; 88305; A4216; J2405